=== PATIENT | male | born 1945 | race Hispanic/Latino ===

== ENCOUNTER 2022-02-04 23:32 | Inpatient (IN) | payer MEDICARE, BC ==
[2022-02-05 00:15] VITALS: BMI 28.9
[2022-02-05 05:05] LABS: #Eosinphils 0.2 thou/uL (0.0-0.7); #Lymphocytes 1.5 thou/uL (1.20-3.40); #Monocytes 0.6 thou/uL (0.11-0.59); #Neutrophils 4.4 thou/uL (1.40-6.50); %Basophils 0.5 % (0.0-1.0); %Eosinophils 3.3 % (0.0-10.0); %Lymphocytes 22.3 % (21.0-51.0); %Monocytes 8.4 % (0.0-10.0); %Neutrophils 65.5 % (42.0-75.0); Hemoglobin 12.3 g/dL (14.0-18.0); Mean Corpuscular HGB CONC 33.6 g/dL (32.0-36.0); Mean Corpuscular Volume 92.4 fL (78.0-98.0); Mean Platelet Volume 8.6 fL (7.4-10.4); Platelet Count 178 thou/uL (130-400); RBC Distribution Width 12.9 % (11.5-14.5); Red Blood Cell (RBC) Count 3.96 mill/uL (4.70-6.10); White Blood Cell (WBC) Count 6.8 thou/uL (4.8-10.8)
[2022-02-05 05:13] LABS: Hemoglobin A1c 6.9 % (4.0-6.0)
[2022-02-05 05:29] LABS: ALT (SGPT) 17 U/L (8-55); AST (SGOT) 18 U/L (5-34); Albumin 3.8 g/dL (3.4-4.8); Alkaline Phosphatase 132 U/L (40-110); Anion Gap 14 mmol/L (10-20); BUN (Urea Nitrogen) 25 mg/dL (8.4-25.7); Bilirubin, Total 0.8 mg/dL (0.2-1.2); Calc. Creatinine Clearance 72 mL/min (70-130); Calcium 9.2 mg/dL (7.8-10.44); Carbon Dioxide 20 mmol/L (23-31); Chloride 107 mmol/L (98-107); Estimated GFR 72; Globulin 3.5 g/dL (2.4-3.5); Glucose 157 mg/dL (83-110); Potassium 4.5 mmol/L (3.5-5.1); Protein, Total 7.3 g/dL (5.8-8.1); Sodium 136 mmol/L (136-145)
[2022-02-05 06:50] LABS: Troponin I 0.052 ng/mL (< 0.028)
[2022-02-05] MEDS: Atorvastatin Calcium 20 MG TAB PO SCH (08:52)
[2022-02-05] MEDS: Ferrous Gluconate 324 MG TAB PO SCH (08:53)
[2022-02-05] MEDS: Calcium Carbonate 600 MG + Vit D TAB PO SCH (08:53)
[2022-02-05] MEDS: Lisinopril 20 MG TAB PO SCH (08:58)
[2022-02-05] MEDS ORDERED: Enoxaparin Sodium 30 MG/0.3 ML SYRINGE SC SCH (09:00)
[2022-02-05] MEDS: Aspirin 81 mg Enteric Coated Tablet PO SCH (20:21)
[2022-02-06] MEDS: Atorvastatin Calcium 20 MG TAB PO SCH (05:55)
[2022-02-06] MEDS: Calcium Carbonate 600 MG + Vit D TAB PO SCH (05:55)
[2022-02-06] MEDS: Ferrous Gluconate 324 MG TAB PO SCH (05:55)
[2022-02-06] MEDS: Lisinopril 20 MG TAB PO SCH (05:56)
[2022-02-06] MEDS ORDERED: Communication Order-Pharmacy FS SCH (06:15)
[2022-02-06] MEDS ORDERED: Acetaminophen 325 MG TAB PO PRN (08:54)
[2022-02-06] MEDS ORDERED: Nitroglycerin 0.4 MG TAB (25 Tab Bottle) SL PRN (10:02)
[2022-02-06] MEDS ORDERED: Sodium Chloride 0.9% 200 ML IV PRN (10:02)
[2022-02-06] MEDS ORDERED: Acetaminophen/Codeine 30-300mg Tablet PO PRN (10:02)
[2022-02-06] MEDS ORDERED: Sodium Chloride 0.9% 1,000 ML IV SCH (10:15)
[2022-02-06 10:52] LABS: Hemoglobin 13.3 g/dL (14.0-18.0); Mean Corpuscular HGB CONC 33.2 g/dL (32.0-36.0); Mean Corpuscular Hemoglobin 31.2 pg (27.0-31.0); Mean Corpuscular Volume 93.9 fL (78.0-98.0); Mean Platelet Volume 8.1 fL (7.4-10.4); Platelet Count 168 thou/uL (130-400); Red Blood Cell (RBC) Count 4.26 mill/uL (4.70-6.10); White Blood Cell (WBC) Count 5.5 thou/uL (4.8-10.8)
[2022-02-06 11:06] LABS: ALT (SGPT) 18 U/L (8-55); AST (SGOT) 19 U/L (5-34); Albumin 3.8 g/dL (3.4-4.8); Alkaline Phosphatase 143 U/L (40-110); Anion Gap 10 mmol/L (10-20); BUN (Urea Nitrogen) 21 mg/dL (8.4-25.7); Bilirubin, Total 0.7 mg/dL (0.2-1.2); Calc. Creatinine Clearance 59 mL/min (70-130); Calcium 8.9 mg/dL (7.8-10.44); Carbon Dioxide 24 mmol/L (23-31); Chloride 105 mmol/L (98-107); Estimated GFR 62; Globulin 3.5 g/dL (2.4-3.5); Glucose 135 mg/dL (83-110); Potassium 4.4 mmol/L (3.5-5.1); Protein, Total 7.3 g/dL (5.8-8.1); Sodium 135 mmol/L (136-145)
[2022-02-06] MEDS ORDERED: Iopamidol 370 76% 50 ML VIAL FS ONE (12:17)
[2022-02-06] MEDS ORDERED: Iopamidol 370 76% 100 ML VIAL ONE (12:17)
[2022-02-06] MEDS: Acetaminophen/Codeine 30-300mg Tablet PO PRN ×2 (14:10→21:05)
[2022-02-06] MEDS: Aspirin 81 mg Enteric Coated Tablet PO SCH (21:03)
[2022-02-07 08:51] VITALS: TEMP 98
[2022-02-07] MEDS: Ferrous Gluconate 324 MG TAB PO SCH (08:51)
[2022-02-07] MEDS: Atorvastatin Calcium 20 MG TAB PO SCH (08:52)
[2022-02-07] MEDS: Calcium Carbonate 600 MG + Vit D TAB PO SCH (08:52)
[2022-02-07] MEDS: Lisinopril 20 MG TAB PO SCH (08:52)
[2022-02-07] MEDS: Acetaminophen/Codeine 30-300mg Tablet PO PRN (08:54)
[2022-02-07 12:34] VITALS: BP 125/80
== END 2022-02-07 14:37 | disposition home or self-care (01) | DRG 243 ==
LOC: 2SW 23:32 → OBSVTOIN 02-05 12:20
PROVIDERS: ADMIT Student in an Organized Health Care Education/Training Program; ATTEND Student in an Organized Health Care Education/Training Program
PROC: 0JH606Z Insertion of Pacemaker, Dual Chamber into Chest Subcutaneous Tissue and Fascia, Open Approach (ICD-10-PCS; principal; 2022-02-06)
PROC: 02HK3JZ Insertion of Pacemaker Lead into Right Ventricle, Percutaneous Approach (ICD-10-PCS; 2022-02-06)
PROC: 02H63JZ Insertion of Pacemaker Lead into Right Atrium, Percutaneous Approach (ICD-10-PCS; 2022-02-06)
PROC: 4A023N8 Measurement of Cardiac Sampling and Pressure, Bilateral, Percutaneous Approach (ICD-10-PCS; 2022-02-06)
PROC: B2111ZZ Fluoroscopy of Multiple Coronary Arteries using Low Osmolar Contrast (ICD-10-PCS; 2022-02-06)
DX: I44.0 Atrioventricular block, first degree (principal); N17.9 Acute kidney failure, unspecified; E78.5 Hyperlipidemia, unspecified; I25.10 Atherosclerotic heart disease of native coronary artery without angina pectoris; Z20.822 Contact with and (suspected) exposure to COVID-19; I35.0 Nonrheumatic aortic (valve) stenosis; N18.2 Chronic kidney disease, stage 2 (mild); E11.22 Type 2 diabetes mellitus with diabetic chronic kidney disease; I12.9 Hypertensive chronic kidney disease with stage 1 through stage 4 chronic kidney disease, or unspecified chronic kidney disease; Z79.82 Long term (current) use of aspirin; Z79.899 Other long term (current) drug therapy
CPT/HCPCS: 33208; 36415; 71045; 80053; 83036; 84484; 85025; 85027; 90471; 90732; 93005; 93010; 93306; 93460; 93567; 93798; 97139; 99152; 99153; C1751; C1769; C1785; C1894; C1898; G0009; G0378; J7050; Q9967